=== PATIENT | male | born 2000 | race Two or more races ===

== ENCOUNTER 2022-09-17 16:52 | Inpatient (IN) | payer OTHER ==
[~2022-09-17] VITALS: Ht 175.3 cm; Wt 81.8 kg
[2022-09-17 17:50] LABS: Calcium 8.7 mg/dL (8.5-10.1); Potassium 3.8 mmol/L (3.5-5.1)
[2022-09-17 17:56] LABS: Albumin 4.7 g/dL (3.4-5.0); BUN/Creatinine Ratio 12.9 (10.0-20.0); Bilirubin, Total 0.4 mg/dL (0.2-1.0); Magnesium 2.6 mg/dL (1.6-2.6); Total Protein 6.9 g/dL (6.4-8.2)
[2022-09-17 18:18] LABS: Basophils # (auto) 0 10 ^3/uL (0-0.2); Basophils % (auto) 0.5 % (0.0-2.0); Eosinophils # (auto) 0 10 ^3/uL (0-0.8); Eosinophils % (auto) 0.3 % (0.0-7.0); Hematocrit 45.1 % (41.0-53.0); Hemoglobin 15.4 g/dL (13.5-17.5); Lymphocytes # (auto) 2.4 10 ^3/uL (0.4-5.4); Lymphocytes % (auto) 32.4 % (10.0-50.0); Mean Corpuscular Hemoglobin 30.9 pg (28.0-32.0); Mean Corpuscular Hgb Conc. 34.2 g/dL (32.0-36.0); Mean Corpuscular Volume 90.1 fL (80.0-100.0); Monocytes # (auto) 0.5 10 ^3/uL (0-1.3); Monocytes % (auto) 6.4 % (0.0-12.0); Neutrophils # (auto) 4.5 10 ^3/uL (1.6-8.6); Neutrophils % (auto) 60.4 % (37.0-80.0); Nucleated Red Blood Cells % 0.1 %; Red Blood Cells 5.01 10^6/uL (4.5-5.90); Red Cell Distribution Width 13.6 % (11.8-14.3); White Blood Cell 7.4 10^3/uL (4.4-10.8)
[2022-09-17] MEDS ORDERED: KETOROLAC TROMETH 30 MG/ML 1ML VIAL IV ONE (18:30)
[2022-09-17] MEDS ORDERED: NITROGLYCERIN 0.4 MG SL TAB SL PRN (21:30)
[2022-09-17] MEDS ORDERED: MORPHINE SULFATE INJ 2 MG/ml SYRG IV PRN (21:30)
[2022-09-17] MEDS ORDERED: ASPirin-EC 325mg tab PO ONE (21:45)
[2022-09-17 22:13] LABS: Cholesterol 98 mg/dL (< 200)
[2022-09-17 22:15] LABS: HDL Cholesterol 36 mg/dL (40-59); LDL Cholesterol 56 mg/dL (< 100); Triglycerides 52 mg/dL (< 150)
[2022-09-17] MEDS: ATORVASTATIN 20 MG TAB PO SCH (23:31)
[2022-09-18 05:57] LABS: Basophils # (auto) 0 10 ^3/uL (0-0.2); Basophils % (auto) 0.5 % (0.0-2.0); Eosinophils # (auto) 0 10 ^3/uL (0-0.8); Eosinophils % (auto) 0.8 % (0.0-7.0); Hematocrit 43.9 % (41.0-53.0); Hemoglobin 15.1 g/dL (13.5-17.5); Lymphocytes # (auto) 2.4 10 ^3/uL (0.4-5.4); Lymphocytes % (auto) 42.9 % (10.0-50.0); Mean Corpuscular Hemoglobin 30.7 pg (28.0-32.0); Mean Corpuscular Hgb Conc. 34.4 g/dL (32.0-36.0); Mean Corpuscular Volume 89.3 fL (80.0-100.0); Monocytes # (auto) 0.5 10 ^3/uL (0-1.3); Monocytes % (auto) 8.5 % (0.0-12.0); Neutrophils # (auto) 2.7 10 ^3/uL (1.6-8.6); Neutrophils % (auto) 47.3 % (37.0-80.0); Nucleated Red Blood Cells % 0.1 %; Red Blood Cells 4.91 10^6/uL (4.5-5.90); Red Cell Distribution Width 13.5 % (11.8-14.3); White Blood Cell 5.7 10^3/uL (4.4-10.8)
[2022-09-18 06:02] LABS: Albumin 4.3 g/dL (3.4-5.0); Calcium 8.7 mg/dL (8.5-10.1); Potassium 3.8 mmol/L (3.5-5.1)
[2022-09-18 06:06] LABS: BUN/Creatinine Ratio 11.3 (10.0-20.0); Bilirubin, Total 0.5 mg/dL (0.2-1.0); Total Protein 6.8 g/dL (6.4-8.2)
[2022-09-18] MEDS ORDERED: HYDROcodone-ACET 5/325MG TAB PO ONE (06:45)
[2022-09-18] MEDS ORDERED: ENOXAPARIN SOD 40 MG/0.4 ML SYRINGE SC SCH (10:00)
[2022-09-18] MEDS ORDERED: PANTOPRAZOLE 40 MG TAB PO SCH (10:00)
[2022-09-18] MEDS: ASPirin-EC 81 mg tab PO SCH (11:27)
[2022-09-18] MEDS: HYDROcodone-ACET 5/325MG TAB PO PRN (18:11)
[2022-09-18] MEDS: ATORVASTATIN 20 MG TAB PO SCH (23:04)
[2022-09-19 05:00] VITALS: BP 119/76
[2022-09-19 09:29] VITALS: BP 114/58
[2022-09-19] MEDS: HYDROcodone-ACET 5/325MG TAB PO PRN ×2 (09:51→21:38)
[2022-09-19] MEDS: ASPirin-EC 81 mg tab PO SCH (09:51)
[2022-09-19 10:17] LABS: Urine Bacteria NONE SEEN /hpf (None Seen); Urine Blood Negative /uL (Negative); Urine Mucus FEW (None Seen); Urine Specific Gravity 1.011 (1.001-1.035); Urine WBC <1 /hpf (0 - 3)
[2022-09-19 10:21] LABS: Alcohol, Urine < 3.0 mg/dL (0-10); Amphetamine Screen, Urine NEGATIVE (NEGATIVE); Barbiturate Scree,Urine NEGATIVE (NEGATIVE); Benzodiazephine Screen, Urine NEGATIVE (NEGATIVE); Cocaine Screen, Urine NEGATIVE (NEGATIVE); Opiate Scree,Urine NEGATIVE (NEGATIVE); Phencyclidine Screen, Urine NEGATIVE (NEGATIVE)
[2022-09-19 10:29] LABS: Cannabinoid Screen, Urine POSITIVE (NEGATIVE)
[2022-09-19 13:00] VITALS: BP 113/72
[2022-09-19] MEDS ORDERED: NICOTINE 21MG/24 HR TOPICAL PATCH TD ONE (16:30)
[2022-09-19 17:00] VITALS: BP 109/56
[2022-09-19] MEDS ORDERED: KETOROLAC TROMETH 30 MG/ML 1ML VIAL IV PRN (18:45)
[2022-09-19 20:10] VITALS: BP 133/83
[2022-09-19] MEDS: ATORVASTATIN 20 MG TAB PO SCH (21:38)
[2022-09-19 22:00] VITALS: BP 133/83
[2022-09-20 05:00] VITALS: BP_SYST 120; BP_SYST 123; BP_SYST 127; BP_DIAS 64; BP_DIAS 81; BP_DIAS 83
[2022-09-20 09:00] VITALS: BP 107/65
[2022-09-20] MEDS: ASPirin-EC 81 mg tab PO SCH (09:46)
[2022-09-20] MEDS: NICOTINE 21MG/24 HR TOPICAL PATCH TD SCH (09:47)
[2022-09-20] MEDS: HYDROcodone-ACET 5/325MG TAB PO PRN ×2 (09:54→22:19)
[2022-09-20 12:22] VITALS: BP 116/59
[2022-09-20 17:00] VITALS: BP 131/90
[2022-09-20 22:00] VITALS: BP 142/101
[2022-09-20] MEDS: ATORVASTATIN 20 MG TAB PO SCH (22:19)
[2022-09-21 05:00] VITALS: BP_SYST 0; BP_SYST 105; BP_DIAS 57
[2022-09-21 08:30] VITALS: BP_SYST 110; BP_SYST 114; BP_DIAS 60; BP_DIAS 69
[2022-09-21 09:00] VITALS: BP 110/69
[2022-09-21] MEDS: ASPirin-EC 81 mg tab PO SCH (09:44)
[2022-09-21] MEDS: HYDROcodone-ACET 5/325MG TAB PO PRN ×3 (09:46→22:23)
[2022-09-21] MEDS: NICOTINE 21MG/24 HR TOPICAL PATCH TD SCH (09:50)
[2022-09-21 12:00] VITALS: BP 114/60
[2022-09-21 17:00] VITALS: BP 113/75
[2022-09-21 22:00] VITALS: BP 132/75
[2022-09-21] MEDS: ATORVASTATIN 20 MG TAB PO SCH (22:22)
[2022-09-22] VITALS (9 sets, daily range): BP systolic 108–143; BP diastolic 53–78
[2022-09-22 06:35] LABS: Albumin 4.1 g/dL (3.4-5.0); Basophils # (auto) 0 10 ^3/uL (0-0.2); Basophils % (auto) 0.3 % (0.0-2.0); Calcium 9.3 mg/dL (8.5-10.1); Eosinophils # (auto) 0 10 ^3/uL (0-0.8); Eosinophils % (auto) 0.6 % (0.0-7.0); Hematocrit 46.2 % (41.0-53.0); Hemoglobin 15.6 g/dL (13.5-17.5); Lymphocytes # (auto) 2.6 10 ^3/uL (0.4-5.4); Lymphocytes % (auto) 32.5 % (10.0-50.0); Mean Corpuscular Hemoglobin 30.5 pg (28.0-32.0); Mean Corpuscular Hgb Conc. 33.7 g/dL (32.0-36.0); Mean Corpuscular Volume 90.6 fL (80.0-100.0); Monocytes # (auto) 0.4 10 ^3/uL (0-1.3); Monocytes % (auto) 5.3 % (0.0-12.0); Neutrophils # (auto) 4.8 10 ^3/uL (1.6-8.6); Neutrophils % (auto) 61.3 % (37.0-80.0); Potassium 3.9 mmol/L (3.5-5.1); Red Cell Distribution Width 13.5 % (11.8-14.3); White Blood Cell 7.9 10^3/uL (4.4-10.8)
[2022-09-22 06:40] LABS: BUN/Creatinine Ratio 14.6 (10.0-20.0); Bilirubin, Total 0.2 mg/dL (0.2-1.0); Total Protein 6.4 g/dL (6.4-8.2)
[2022-09-22] MEDS: NICOTINE 21MG/24 HR TOPICAL PATCH TD SCH (10:00)
[2022-09-22] MEDS: ASPirin-EC 81 mg tab PO SCH (10:00)
[2022-09-22] MEDS ORDERED: LIDOCAINE 2%HCL (LOCAL ANESTH.) INJ 20ML MDV ONE (13:01)
[2022-09-22] MEDS ORDERED: IODIXANOL 320MG/ML 100ML BTL IV ONE (13:01)
[2022-09-22] MEDS ORDERED: VERAPAMIL 2.5MG/ML INJ 2ML VIAL IV ONE (13:23)
[2022-09-22] MEDS ORDERED: ANGIOMAX 250 MG VIAL IV ONE (13:23)
[2022-09-22] MEDS ORDERED: fentaNYL CITRATE 100 MCG/2 ML VL ONE (13:23)
[2022-09-22] MEDS ORDERED: HEPARIN SODIUM (PORCINE) 5000 UNITS/ML 1ML VIAL ONE (13:24)
[2022-09-22] MEDS ORDERED: SODIUM CHL 0.9% 0 ML ONE (13:24)
[2022-09-22] MEDS ORDERED: MIDAZOLAM HCL 2MG/2ML 2ml VIAL (1mg/ml) ONE (13:24)
== END 2022-09-22 20:00 | disposition home or self-care (01) | DRG 287 ==
LOC: EDBD 16:52 → ER 16:52 → TELE 21:33 → TELE-CENTR 09-18 21:50
PROVIDERS: ADMIT Nurse Practitioner Family; ATTEND Internal Medicine
PROC: 4A023N7 Measurement of Cardiac Sampling and Pressure, Left Heart, Percutaneous Approach (ICD-10-PCS; principal; 2022-09-22)
PROC: B211YZZ Fluoroscopy of Multiple Coronary Arteries using Other Contrast (ICD-10-PCS; 2022-09-22)
DX: I25.110 Atherosclerotic heart disease of native coronary artery with unstable angina pectoris (principal); I24.9 Acute ischemic heart disease, unspecified; Q24.5 Malformation of coronary vessels; R55 Syncope and collapse; F12.90 Cannabis use, unspecified, uncomplicated; Z72.0 Tobacco use; Z71.6 Tobacco abuse counseling
CPT/HCPCS: 36415; 71046; 80053; 80061; 80307; 81001; 82306; 83036; 83735; 83880; 84484; 85025; 86850; 86900; 86901; 93005; 93306; 93458; 96372; 96374; 99152; 99291; G0378; J1885; J2250; Q9967